=== PATIENT | male | born 1940 | race Caucasian/White ===

== ENCOUNTER 2018-06-26 11:49 | Emergency (ER) | payer MEDICARE, BC ==
[2018-06-26 11:58] VITALS: RESP 20; TEMP 98.2
[2018-06-26] MEDS ORDERED: BACITRACIN 500 U/GM OIN TOP ONE ×2 (12:31→12:38)
[2018-06-26 14:34] VITALS: BP 176/90; PULSE 51; O2SAT 99
== END 2018-06-26 14:25 | disposition home or self-care (01) | DRG 605 ==
LOC: ED 11:49
DX: S41.152A Open bite of left upper arm, initial encounter (principal); S41.151A Open bite of right upper arm, initial encounter; S01.452A Open bite of left cheek and temporomandibular area, initial encounter; S01.25XA Open bite of nose, initial encounter; W54.0XXA Bitten by dog, initial encounter
CPT/HCPCS: 99283; 99285; A6402; A6446; A9270-GY